=== PATIENT | female | born 1960 | race Caucasian/White ===

== ENCOUNTER 2018-05-24 19:49 | Inpatient (IN) | payer MEDICARE, MEDICAID ==
[~2018-05-24] VITALS: Ht 162.6 cm; Wt 63.5 kg
[2018-05-24] MEDS ORDERED: CEPHALEXIN MONOHYDRATE 500 MG CAPSULE PO ONE (20:15)
[2018-05-24] MEDS ORDERED: OXCA150T5 (20:16)
[2018-05-24] MEDS ORDERED: CEPHALEXIN MONOHYDRATE 500 MG CAPSULE ONE (20:18)
--- NOTE | 2018-05-24 20:56 | NUR ---
Pt. admitted to GPS, under care of Dr. Bermudez Belongs List completed
--- NOTE | 2018-05-24 21:20 | NUR ---
57 year old female admitted from er via jaya under Dr alegre for GD in mhu. alert and oriented to name place and time. patient is disorganized but cooperative. stated i am sad due to i have spider bite. very anxious. took shower with assistance. ambulatory. talking to unseen people.v/s stable. no agressive behavior noted denied SI. Monitoring for safety via q every 15 minutes head check.
[2018-05-24] MEDS ORDERED: ACETAMINOPHEN 325 MG TABLET PO PRN (21:30)
[2018-05-24] MEDS ORDERED: MAGNESIUM HYDROXIDE 30 ML LIQUID UDC PO PRN (21:30)
[2018-05-24] MEDS ORDERED: MAG HYDROX/AL HYDROX/SIMETH 30 ML LIQUID UDC PO PRN (21:30)
--- NOTE | 2018-05-24 22:00 | NUR ---
keflex not given due to given in [facility]ino er.
[2018-05-24] MEDS: CLONAZEPAM 0.5 MG TABLET PO PRN (22:18)
--- NOTE | 2018-05-24 22:20 | NUR ---
nsg: patient is very anxious. Klonopin 0.5 mg po given as ordered.
[2018-05-25] MEDS: CEPHALEXIN MONOHYDRATE 250 MG CAPSULE PO SCH ×4 (06:00→22:40)
[2018-05-25] MEDS ORDERED: CEPHALEXIN MONOHYDRATE 250 MG CAPSULE PO SCH (06:00)
[2018-05-25] MEDS ORDERED: DOCU-141 PO (06:20)
[2018-05-25] MEDS ORDERED: PSYL1PAC8 PO (06:20)
--- NOTE | 2018-05-25 07:03 | NUR ---
GPS: Remain ramesh and cooperative with meds and care. no agitation noted, slept 3 hrs through the night.
[2018-05-25 08:00] VITALS: BP 100/64
[2018-05-25] MEDS: NICOTINE 21 MG/24HR PATCH TD SCH (09:40)
[2018-05-25] MEDS: DOCUSATE SODIUM 100 MG CAPSULE PO SCH ×2 (11:30→17:31)
[2018-05-25 16:39] VITALS: BP 99/65
[2018-05-25 20:00] VITALS: BP 106/71
[2018-05-25] MEDS: OXCARBAZEPINE 300 MG TABLET PO SCH (21:42)
[2018-05-25] MEDS: QUETIAPINE FUMARATE 200 MG TABLET PO SCH (21:42)
[2018-05-26] MEDS: CEPHALEXIN MONOHYDRATE 250 MG CAPSULE PO SCH ×3 (06:08→21:59)
[2018-05-26 07:30] VITALS: BP 97/62
[2018-05-26] MEDS: NICOTINE 21 MG/24HR PATCH TD SCH (09:39)
[2018-05-26] MEDS: QUETIAPINE FUMARATE 25 MG TABLET PO SCH ×2 (09:40→16:40)
[2018-05-26] MEDS: DOCUSATE SODIUM 100 MG CAPSULE PO SCH ×2 (09:40→16:40)
[2018-05-26] MEDS: OXCARBAZEPINE 300 MG TABLET PO SCH ×2 (09:40→21:59)
--- NOTE | 2018-05-26 15:46 | NUR ---
Initial Discharge Note: Patient currently lives in a [address] 8 apartment [[address] [place] [address]; ]. Patient states she would like to return when ready. Patient receives community mental health support from [facility] [[address] [facility] [address] [place] [address]; ] where she has a psychiatrist and psychotherapist. Patient has no family/friend support, but does have a renal case manager, Rory [[phone]], through [address] 8 housing who assists her with community resources. Patient has provided consent for staff to speak with him. Patient has long history of not being med-compliant and may benefit from medication management through home health services. limehouse worker will collaborate with patient and MD on a safe and proper discharge for patient.
[2018-05-26 16:37] VITALS: BP 95/61
[2018-05-26 20:29] VITALS: BP 91/53
[2018-05-26] MEDS: CLOTRIMAZOLE 1% VAG CREAM 45 GM TUBE VG SCH ×2 (21:00→21:59)
[2018-05-26] MEDS ORDERED: MICONAZOLE NITRATE 2% VAG CREA 45 GM TUBE VG SCH (21:00)
[2018-05-26] MEDS: QUETIAPINE FUMARATE 200 MG TABLET PO SCH (21:59)
[2018-05-26] MEDS: PHENYLEPHRINE/SHARK LIVER/CCB 1 EACH SUPP.RECT RC SCH (21:59)
[2018-05-26] MEDS: TEMAZEPAM 7.5 MG CAPSULE PO PRN (22:03)
--- NOTE | 2018-05-26 23:00 | NUR ---
Patient refused vaginal cream, states she is supposed to be taking Flagyl and "I don't have a yeast infection." Patient did use hemorrhoidal cream as ordered.
[2018-05-27] MEDS: CEPHALEXIN MONOHYDRATE 250 MG CAPSULE PO SCH ×3 (06:06→21:37)
[2018-05-27 07:38] LABS: BASOPHILS % (AUTO) 0.7 % (0.0-2.0); EOSINOPHILS # (AUTO) 0.1 K/uL (0.0-0.7); EOSINOPHILS % (AUTO) 2.3 % (0.0-7.0); HEMATOCRIT 41.5 % (31.2-41.9); HEMOGLOBIN 13.9 g/dL (10.9-14.3); LYMPHOCYTES # (AUTO) 2.1 K/uL (20.0-40.0); LYMPHOCYTES % (AUTO) 44.6 % (20.5-51.5); MEAN CORPUSCULAR HEMOGLOBIN 30.8 uug (24.7-32.8); MEAN CORPUSCULAR HGB CONC 34 g/dL (32.3-35.6); MEAN CORPUSCULAR VOLUME 91.9 fL (75.5-95.3); MONOCYTES # (AUTO) 0.6 K/uL (2.0-10.0); MONOCYTES % (AUTO) 12.6 % (0.0-11.0); NEUTROPHILS # (AUTO) 1.9 K/uL (1.8-8.9); NEUTROPHILS % (AUTO) 39.8 % (38.5-71.5); PLATELET COUNT (AUTO) 196 K/uL (179-408); RED BLOOD CELL COUNT(AUTO) 4.51 MIL/uL (3.63-4.92); WHITE BLOOD COUNT (AUTO) 4.8 K/uL (3.8-11.8)
[2018-05-27 08:04] LABS: BILIRUBIN,TOTAL 0.2 mg/dL (0.2-1.0); CREATININE 0.7 mg/dL (0.6-1.3); MAGNESIUM 2.1 mg/dL (1.8-2.4); PHOSPHOROUS 4.5 mg/dL (2.5-4.9); POTASSIUM 4.3 mmol/L (3.5-5.1); TOTAL PROTEIN, SERUM 7.1 g/dL (6.4-8.2)
[2018-05-27 08:10] LABS: THYROID STIMULATING HORMONE 0.917 mIU/mL (0.358-3.740)
[2018-05-27] MEDS: PSYLLIUM SEED PACKET PO SCH (08:47)
[2018-05-27] MEDS: DOCUSATE SODIUM 100 MG CAPSULE PO SCH ×2 (08:47→16:55)
[2018-05-27] MEDS: OXCARBAZEPINE 300 MG TABLET PO SCH ×2 (08:47→21:29)
[2018-05-27] MEDS: LIDOCAINE 5% PATCH TD SCH (08:48)
[2018-05-27] MEDS: NICOTINE 21 MG/24HR PATCH TD SCH (08:48)
[2018-05-27 08:54] VITALS: BP 105/66
[2018-05-27] MEDS: QUETIAPINE FUMARATE 25 MG TABLET PO SCH ×2 (09:43→16:55)
[2018-05-27 10:55] LABS: *BILIRUBIN,URIN NEGATIVE (NEGATIVE); *BLOOD, URINE Trace-intact (NEGATIVE); *CLARITY,URINE CLOUDY (CLEAR); *COLOR,URINE YELLOW (YELLOW); *KETONES,URINE NEGATIVE (NEGATIVE); *PROTEIN,URINE NEGATIVE (NEGATIVE); *UROBILINOGEN,URINE 0.2 E.U./dl (NORMAL); LEUKOCYTE ESTERASE ,URINE 3+ (NEGATIVE); NITRITE, URINE NEGATIVE (NEGATIVE); UGLUCOSE NEGATIVE (NEGATIVE)
[2018-05-27 10:59] LABS: BACTERIA,URINE MODERATE /HPF (NONE SEEN); SQUAMOUS EPITHELIAL CELL,UR FEW /HPF (NONE SEEN); WBC,URINE 80-100 /HPF (0-3)
[2018-05-27] MEDS ORDERED: SULFAMETH/TRIMETH 800/160 MG TABLET PO SCH (11:15)
--- NOTE | 2018-05-27 14:19 | NUR ---
Patient compliant with morning medication. cooperative with the staff. Continue psych medication as per order. no behavioral problem noted. will continue monitor
[2018-05-27 15:41] VITALS: BP 87/53
[2018-05-27] MEDS: CLOTRIMAZOLE 1% VAG CREAM 45 GM TUBE VG SCH (21:00)
--- NOTE | 2018-05-27 21:00 | NUR ---
PATIENT IN BED, ALERT ORIENTED, NO COMPLAIN OF PAIN, CONT ON ABX FOR UTI WITH NO ADVERSE REACTION NOTED. PATIENT TOOK ALL PO MEDS, EXCEPT FOR VAGINAL CREAM, NO FURTHER COMPLAIN OF VAGINAL DISCHARGE NOR ITCHING AT THIS TIME. NO BEHAVIORAL PROBLEM NOTED AT THIS TIME. CONT TO MONITOR.
[2018-05-27 21:01] VITALS: BP 92/56
[2018-05-27] MEDS: QUETIAPINE FUMARATE 200 MG TABLET PO SCH (21:29)
[2018-05-27] MEDS: PHENYLEPHRINE/SHARK LIVER/CCB 1 EACH SUPP.RECT RC SCH (21:37)
[2018-05-28] MEDS: CEPHALEXIN MONOHYDRATE 250 MG CAPSULE PO SCH ×3 (05:48→21:39)
--- NOTE | 2018-05-28 06:21 | NUR ---
PATIENT SLEPT MOST OF THE NIGHT, COOPERATIVE WITH CARE, CONT ON ABX FOR UTI. STILL HAS EPISODES OF TALKING TO SELF, CONT TO REDIRECT, CONT TO MONITOR.
[2018-05-28 07:30] VITALS: BP 99/59
[2018-05-28] MEDS: QUETIAPINE FUMARATE 25 MG TABLET PO SCH ×2 (09:37→17:15)
[2018-05-28] MEDS: OXCARBAZEPINE 300 MG TABLET PO SCH ×2 (09:37→21:39)
[2018-05-28] MEDS: DOCUSATE SODIUM 100 MG CAPSULE PO SCH ×2 (09:37→17:15)
[2018-05-28] MEDS: LIDOCAINE 5% PATCH TD SCH (09:38)
[2018-05-28] MEDS: NICOTINE 21 MG/24HR PATCH TD SCH (09:38)
[2018-05-28] MEDS: PSYLLIUM SEED PACKET PO SCH (09:39)
--- NOTE | 2018-05-28 12:12 | NUR ---
Discharge Planning: abrasive worker called and left a voicemail for patient's rent and housing investigator, Rory [[phone]] requesting return phone call.
[2018-05-28 16:00] VITALS: BP 111/72
[2018-05-28] MEDS: CLOTRIMAZOLE 1% VAG CREAM 45 GM TUBE VG SCH (21:00)
[2018-05-28 21:22] VITALS: BP 106/61
[2018-05-28] MEDS: QUETIAPINE FUMARATE 200 MG TABLET PO SCH (21:39)
[2018-05-28] MEDS: PHENYLEPHRINE/SHARK LIVER/CCB 1 EACH SUPP.RECT RC SCH (22:22)
[2018-05-29] MEDS: CEPHALEXIN MONOHYDRATE 250 MG CAPSULE PO SCH (05:59)
[2018-05-29 07:30] VITALS: BP 94/59
[2018-05-29] MEDS: OXCARBAZEPINE 300 MG TABLET PO SCH ×2 (08:44→20:32)
[2018-05-29] MEDS: DOCUSATE SODIUM 100 MG CAPSULE PO SCH ×2 (08:44→16:50)
[2018-05-29] MEDS: QUETIAPINE FUMARATE 25 MG TABLET PO SCH ×2 (08:44→16:50)
[2018-05-29] MEDS: PSYLLIUM SEED PACKET PO SCH (08:44)
[2018-05-29] MEDS: LIDOCAINE 5% PATCH TD SCH (08:44)
[2018-05-29] MEDS: NICOTINE 21 MG/24HR PATCH TD SCH (08:45)
--- NOTE | 2018-05-29 15:43 | NUR ---
Process Group Note S- Pt. stated that she wishes she was not such an addict. Her drug of choice is cocaine. O - Pt. participated appropriately in the group. Speech was very pressured. Pt. stated " I am bipolar." A - Pt. provided support to peers. She showed some insight and stated that 8 people in her building from drug overdoses. P - Pt. will continue with medication regimen and milieu treatment.
[2018-05-29 16:03] VITALS: BP 99/60
[2018-05-29 19:30] VITALS: BP 97/59
[2018-05-29] MEDS: CLOTRIMAZOLE 1% VAG CREAM 45 GM TUBE VG SCH (20:32)
[2018-05-29] MEDS: QUETIAPINE FUMARATE 200 MG TABLET PO SCH (20:32)
[2018-05-29] MEDS: PHENYLEPHRINE/SHARK LIVER/CCB 1 EACH SUPP.RECT RC SCH (20:32)
[2018-05-29] MEDS: TEMAZEPAM 7.5 MG CAPSULE PO PRN (22:32)
[2018-05-30 07:30] VITALS: BP 93/56
--- NOTE | 2018-05-30 08:08 | NUR ---
GPS/NSG Patient first observed on unit with disheveled appearance, disorganized pacing hallway with periods of increased agitation. Patient compliant with HS medication however patient observed to have increased anxiety making nonsensical statements, ie: "I have MRSA in my upper palate" making demands,"Call the doctor, NOW". Prn for insomnia administered as ordered with effective outcome. Behavior endorsed, continue to monitor for safety. Patient slept a total of eight hours.
[2018-05-30] MEDS: QUETIAPINE FUMARATE 25 MG TABLET PO SCH ×2 (09:04→17:48)
[2018-05-30] MEDS: OXCARBAZEPINE 300 MG TABLET PO SCH ×2 (09:04→20:38)
[2018-05-30] MEDS: DOCUSATE SODIUM 100 MG CAPSULE PO SCH ×2 (09:04→17:47)
[2018-05-30] MEDS: PSYLLIUM SEED PACKET PO SCH (09:05)
[2018-05-30] MEDS: LIDOCAINE 5% PATCH TD SCH (09:05)
[2018-05-30] MEDS: NICOTINE 21 MG/24HR PATCH TD SCH (09:05)
[2018-05-30 16:03] VITALS: BP 114/75
[2018-05-30] MEDS: CLONAZEPAM 0.5 MG TABLET PO PRN (17:48)
[2018-05-30 20:05] VITALS: BP 91/52
[2018-05-30] MEDS: QUETIAPINE FUMARATE 200 MG TABLET PO SCH (20:38)
[2018-05-30] MEDS: PHENYLEPHRINE/SHARK LIVER/CCB 1 EACH SUPP.RECT RC SCH (20:38)
[2018-05-30] MEDS: CLOTRIMAZOLE 1% VAG CREAM 45 GM TUBE VG SCH (20:45)
[2018-05-31 06:47] LABS: BASOPHILS % (AUTO) 0.5 % (0.0-2.0); EOSINOPHILS # (AUTO) 0.2 K/uL (0.0-0.7); EOSINOPHILS % (AUTO) 3.9 % (0.0-7.0); HEMATOCRIT 39.9 % (31.2-41.9); HEMOGLOBIN 13.5 g/dL (10.9-14.3); LYMPHOCYTES % (AUTO) 37.5 % (20.5-51.5); MEAN CORPUSCULAR HEMOGLOBIN 30.7 uug (24.7-32.8); MEAN CORPUSCULAR HGB CONC 34 g/dL (32.3-35.6); MEAN CORPUSCULAR VOLUME 90.8 fL (75.5-95.3); MONOCYTES # (AUTO) 0.9 K/uL (2.0-10.0); NEUTROPHILS # (AUTO) 2.3 K/uL (1.8-8.9); NEUTROPHILS % (AUTO) 42.1 % (38.5-71.5); PLATELET COUNT (AUTO) 212 K/uL (179-408); WHITE BLOOD COUNT (AUTO) 5.4 K/uL (3.8-11.8)
[2018-05-31 06:50] LABS: CREATININE 0.7 mg/dL (0.6-1.3); MAGNESIUM 2.1 mg/dL (1.8-2.4); PHOSPHOROUS 4.3 mg/dL (2.5-4.9); POTASSIUM 4.3 mmol/L (3.5-5.1)
[2018-05-31 08:00] VITALS: BP 105/65
[2018-05-31] MEDS: OXCARBAZEPINE 300 MG TABLET PO SCH ×2 (08:56→21:10)
[2018-05-31] MEDS: QUETIAPINE FUMARATE 25 MG TABLET PO SCH ×2 (08:56→17:09)
[2018-05-31] MEDS: DOCUSATE SODIUM 100 MG CAPSULE PO SCH ×2 (08:56→17:09)
[2018-05-31] MEDS: NICOTINE 21 MG/24HR PATCH TD SCH (08:57)
[2018-05-31] MEDS: PSYLLIUM SEED PACKET PO SCH (08:57)
[2018-05-31] MEDS: LIDOCAINE 5% PATCH TD SCH (08:57)
[2018-05-31 10:04] LABS: BAND % (MANUAL) 1 % (0-10); EOSINOPHILS % (MANUAL) 4 % (0-8); LYMPHOCYTES % (MANUAL) 38 % (20-40); MONOCYTES % (MANUAL) 12 % (2-10); NEUTROPHILS % (MANUAL) 45 % (42-75)
[2018-05-31 16:00] VITALS: BP 137/72
[2018-05-31 20:07] VITALS: BP 89/52
[2018-05-31 20:24] VITALS: BP 97/64
[2018-05-31] MEDS: CLOTRIMAZOLE 1% VAG CREAM 45 GM TUBE VG SCH (21:00)
[2018-05-31] MEDS: PHENYLEPHRINE/SHARK LIVER/CCB 1 EACH SUPP.RECT RC SCH (21:00)
[2018-05-31] MEDS: QUETIAPINE FUMARATE 200 MG TABLET PO SCH (21:10)
[2018-05-31] MEDS: TEMAZEPAM 7.5 MG CAPSULE PO PRN (22:23)
[2018-06-01 07:30] VITALS: BP 93/58
[2018-06-01] MEDS: QUETIAPINE FUMARATE 25 MG TABLET PO SCH ×2 (08:45→16:46)
[2018-06-01] MEDS: LIDOCAINE 5% PATCH TD SCH (08:45)
[2018-06-01] MEDS: DOCUSATE SODIUM 100 MG CAPSULE PO SCH ×2 (08:45→16:46)
[2018-06-01] MEDS: PSYLLIUM SEED PACKET PO SCH (08:45)
[2018-06-01] MEDS: OXCARBAZEPINE 300 MG TABLET PO SCH ×2 (08:45→20:45)
[2018-06-01] MEDS: NICOTINE 21 MG/24HR PATCH TD SCH (08:45)
--- NOTE | 2018-06-01 12:50 | NUR ---
Discharge Planning Note: MIRI placed call to patient's Nurse Gynecology, Rory ([phone]) to discuss discharge planning. Arranged time for phone conference with this conventional mortgage underwriter and pt to discuss discharge planning to inpatient treatment center at 11am tomorrow (06/02/18). Rory agreeable. MIRI faxed referral to [facility] [ph. [phone]; fax [phone]]. Attn: Shreyas. MIRI will continue to follow-up.
[2018-06-01 16:46] VITALS: BP 96/61
[2018-06-01 20:30] VITALS: BP 92/58
[2018-06-01] MEDS: QUETIAPINE FUMARATE 200 MG TABLET PO SCH (20:45)
[2018-06-01] MEDS: CLOTRIMAZOLE 1% VAG CREAM 45 GM TUBE VG SCH (20:45)
[2018-06-01] MEDS: PHENYLEPHRINE/SHARK LIVER/CCB 1 EACH SUPP.RECT RC SCH (20:46)
[2018-06-02 07:30] VITALS: BP 101/67
[2018-06-02] MEDS: QUETIAPINE FUMARATE 25 MG TABLET PO SCH ×2 (08:51→16:48)
[2018-06-02] MEDS: PSYLLIUM SEED PACKET PO SCH (08:51)
[2018-06-02] MEDS: NICOTINE 21 MG/24HR PATCH TD SCH (08:51)
[2018-06-02] MEDS: DOCUSATE SODIUM 100 MG CAPSULE PO SCH ×2 (08:52→16:48)
[2018-06-02] MEDS: OXCARBAZEPINE 300 MG TABLET PO SCH ×2 (08:52→20:21)
[2018-06-02] MEDS: LIDOCAINE 5% PATCH TD SCH (08:52)
--- NOTE | 2018-06-02 14:35 | NUR ---
Discharge Planning: pharmaceutical worker met with patient and aishwarya Valadez [employer] Senior [employer] Planner [[phone]], to discuss discharge plan. Patient has been put on probation at [address] apartment due to multiple failures to comply with behavioral contract and reoccurring cycle of being put on 5150 then relapsed then relapsing with drugs. Patient is near eviction and is now being required to go to inpatient drug rehab. During meeting, patient expressed that she did not want to go to [facility] because "the food is bad". Patient further stated that she just wants to go live with her family in [place], [place]. Patient lacks insight into consequence of not going to treatment which would be losing her Section 8 housing. Meeting was unsuccessful in having patient agree to [facility]. Patient stated she would go to [facility]" [[phone]]. pharmaceutical worker left voicemail with market research coordinatorMonie, and is awaiting return phone call. pharmaceutical worker will continue to work on a safe and proper discharge for patient.
--- NOTE | 2018-06-02 16:12 | NUR ---
Firearms Report: MIRI completed and submitted [employer] Firearms Report for 5250 GD certification.
[2018-06-02 16:56] VITALS: BP 98/45
[2018-06-02 20:02] VITALS: BP 105/68
[2018-06-02] MEDS: QUETIAPINE FUMARATE 200 MG TABLET PO SCH (20:21)
[2018-06-02] MEDS: PHENYLEPHRINE/SHARK LIVER/CCB 1 EACH SUPP.RECT RC SCH (20:23)
[2018-06-03] MEDS: QUETIAPINE FUMARATE 25 MG TABLET PO SCH (08:14)
[2018-06-03] MEDS: NICOTINE 21 MG/24HR PATCH TD SCH (08:14)
[2018-06-03] MEDS: OXCARBAZEPINE 300 MG TABLET PO SCH (08:14)
[2018-06-03] MEDS: DOCUSATE SODIUM 100 MG CAPSULE PO SCH (08:14)
[2018-06-03] MEDS: PSYLLIUM SEED PACKET PO SCH (08:17)
[2018-06-03] MEDS: LIDOCAINE 5% PATCH TD SCH (08:18)
[2018-06-03 08:20] VITALS: BP 99/56
--- NOTE | 2018-06-03 09:14 | NUR ---
Discharge Planning: Patient will be discharged back to her [address] 8 housing apartment [[address] [place] [address]] and transportation will be provided by a taxi voucher at 1:00pm. Please arrange taxi transportation for this patient. asbestos worker called and spoke with ge Valadez Family [employer] Counter Associate, informing him of patient discharge and he is agreeable with the plan. Patient is alert and oriented x4 and denies any SI/HI. Patient is agreeable with discharge plan. Patient currently receives psychiatric treatment at [facility] [[address], [place] [address]; ]. Follow-up appointments have been made by Melania manager sql at [facility], for: Dr. Emanuel (psychiatrist) on Friday, June 10 at 1:30pm; Primary care physician appointment on June 26 at 10:00am. Continuing care packet has been faxed to doctors office. Patient was given outpatient mental health resources including [facility] , Swapna Nava , and the National Suicide Prevention Lifeline . Patient was also provided with a brief substance abuse intervention and provided the following resources: [facility] [[address] [place] [address]; Tel. (intake at 9am on Weekdays)], [facility] [[address] [place] [address] ; Tel. ; [address] [place] [address]; ], [facility] [[address] [place] [address]; , ], and Substance Abuse and Mental Health Services Administration (SAMHSA) National Helpline [7-561-985-HELP (5615)]. Patient had been accepted at [facility] for their inpatient program, however, patient has refused this as placement.
--- NOTE | 2018-06-03 15:30 | NUR ---
1420 Discharged instructions given to patient regarding medications to continue at home, prescription given and instructed to filled it to her pharmacy , patient verbalized understanding.All belongings returned and signed by patient. . 1500 Discharged patient home via taxi alert and ox 3 Denies SI/HI. No delusion. No hallucination noted.
--- NOTE | 2018-06-03 15:47 | NUR ---
GROUP ACTIVITY NOTE: GOAL Patient will actively participate in the group activity of the day or relax out in the patio room with fellow patients. INTERVENTION Scagliola Mechanic invited patient to participate in a group activity consisting of crossword puzzles and coloring held from 10:30-11:15 am out in the patio. RESPONSE Patient expressed disinterest in participating in activities or relaxing in the activities room with peers. Patient remained in their room resting during that time. PLAN Patient will be invited to attend the next group activity.
== END 2018-06-03 15:00 | disposition home or self-care (01) | DRG 885 ==
LOC: ER 19:54 → GPS 20:50
PROVIDERS: ADMIT Psychiatry & Neurology Psychiatry
DX: F25.9 Schizoaffective disorder, unspecified (principal); B19.20 Unspecified viral hepatitis C without hepatic coma; F14.20 Cocaine dependence, uncomplicated; Z91.14 Patient's other noncompliance with medication regimen; N89.8 Other specified noninflammatory disorders of vagina; K64.9 Unspecified hemorrhoids; Z87.440 Personal history of urinary (tract) infections; K74.60 Unspecified cirrhosis of liver; F17.210 Nicotine dependence, cigarettes, uncomplicated; F43.10 Post-traumatic stress disorder, unspecified; J43.9 Emphysema, unspecified; G89.29 Other chronic pain; M54.5 Low back pain
CPT/HCPCS: 36415; 71045; 83735; 84100; 84443; 85025; 87086; 93005; A4663